=== PATIENT | female | born 1945 | race Asian ===

== ENCOUNTER 2017-05-09 10:33 | Emergency (ER) | payer OTHER ==
[2017-05-09 10:36] VITALS: BP 184/77
== END 2017-05-09 11:53 | disposition home or self-care (01) ==
LOC: ED 10:33
DX: L03.115 Cellulitis of right lower limb (principal); I10 Essential (primary) hypertension; E78.00 Pure hypercholesterolemia, unspecified; W57.XXXA Bitten or stung by nonvenomous insect and other nonvenomous arthropods, initial encounter; Y93.89 Activity, other specified; Y92.89 Other specified places as the place of occurrence of the external cause; Y99.8 Other external cause status

== ENCOUNTER 2017-08-08 11:02 | Inpatient (IN) | payer OTHER ==
[~2017-08-08] VITALS: Ht 160 cm; Wt 55.1 kg
--- NOTE | 2017-08-08 11:24 | NUR ---
PT C/O OF CHEST "BURNING" SINCE APPROX 0800 THIS AM AND HIGH BP, DENIES PAIN. PT STS THAT BURING BEGAN WHILE SITTING IN CHAIR AND REPORTS BURING SENSATIONS IS RADIANTING DOWNWARD TO BLE AND REPORTS WEAKNESS TO BLE. PT IS AAOX4, ANSWERS QUESTIONS APPROPRIATELY, FOLLOWS COMMANDS, MOVES ALL EXTREMITIES WITH EQUAL PETAL SHAPER HAND, NO FACIAL DROOP. DENIES HEADACHE, TINNITUS, OR VISUAL CHANGES. DENIES ABD PAIN, DENIES DYSURIA. PT REPORTS HBP OVER 170 AT HOME, PT IS CURRENTLY AT 152/81 IN ROOM. PT REPORTS THAT ON ADVICE OF PCP, THAT SHE TAKE RX OF CARVEDILIOL 6.5MG AND HCTZ 25MG IN AM AND IF BP REMAINS HIGH AFTER 1 HR TO TAKE HYDRALAZINE 25MG. PT REPORTS FOLLOWING ORDER OF PCP AND BP REMAINING HIGH. PT PLACED ON PSYCHOLOGIST AND PULSE OX, NSR. EKG PERFORMED IN TRIAGE.
--- NOTE | 2017-08-08 11:35 | NUR ---
DR BALDWIN AT BEDSIDE FOR MSE
[2017-08-08] MEDS ORDERED: CARVEDILOL6.25 M1 PO (11:41)
[2017-08-08] MEDS ORDERED: HYDRALAZINE HCL25 MG PO (11:41)
[2017-08-08] MEDS ORDERED: HYDROCHLOROTHIA25 MG PO (11:42)
[2017-08-08] MEDS ORDERED: NITROGLYCERIN0.4 MG SL (11:43)
[2017-08-08] MEDS ORDERED: LIPI20 PO ×2 (11:43→17:09)
[2017-08-08] MEDS ORDERED: ASPIR 8181 MG PO (11:43)
[2017-08-08] MEDS ORDERED: MAGNESIUM OXID400 MG PO (11:43)
--- NOTE | 2017-08-08 11:44 | NUR ---
LAB AT BEDSIDE
[2017-08-08 12:04] LABS: BASOPHIL % 0.6 % (0-2); PLATELET COUNT 200 x10^3mcL (130-400); RED CELL DISTRIBUTION WIDTH 13.8 % (11.5-14.5)
--- NOTE | 2017-08-08 12:13 | NUR ---
PT RESTING IN BED. PT REPORTS CONTINUED BURING SENSATION TO CHEST. NAD NOTED. PT DAUGHTER AT BEDSIDE
[2017-08-08 12:15] LABS: CALCIUM 8.7 mg/dL (8.5-10.1); CARBON DIOXIDE 28.7 mmol/L (21-32); CHLORIDE SERUM 98 mmol/L (98-107); CREATININE SERUM 0.9 mg/dL (0.6-1.0); GLUCOSE SERUM 109 mg/dL (74-106); POTASSIUM SERUM 3.9 mmol/L (3.5-5.1); SODIUM SERUM 134 mmol/L (136-145)
[2017-08-08 12:19] LABS: ALBUMIN 3.8 g/dL (3.4-5.0); ALKALINE PHOSPHATASE 58 U/L (46-116); ALT/SGPT 30 U/L (14-59); AST/SGOT 30 U/L (15-37); BILIRUBIN TOTAL 0.72 mg/dL (0.20-1.00); CHOLESTEROL 177 mg/dL (<200); PHOSPHOROUS 2.8 mg/dL (2.5-4.9); TOTAL PROTEIN, SERUM 7.9 g/dL (6.4-8.2); URIC ACID 4.1 mg/dL (2.6-6.0)
[2017-08-08 12:26] LABS: HDL CHOLESTEROL 67 mg/dL (40-60)
--- NOTE | 2017-08-08 13:11 | NUR ---
DR BALDWIN AT BEDSIDE SPEAKING TO PT REGARDING POC AND TEST RESULTS
--- NOTE | 2017-08-08 13:49 | NUR ---
REPORT CALLED TO CLEMENTINA TORRES RN
--- NOTE | 2017-08-08 14:00 | NUR ---
RECEIVED PT FROM ED VIA [employer] [facility], CAME IN DUE TO CHEST PAIN. AAOX4. DENIES HEADACHE/DIZZINESS. NO SOB NOTED. DENIES CHEST PAIN/PRESSURE AT THIS TIME, NSR ON THE MONITOR. DENIES ABDOMINAL DISCOMFORT. BOWEL SOUNDS ACTIVE. IV SITE PATENT AND INTACT. DAUGHTER AT BEDSIDE. ENDORSED TO PRIMARY NURSE CLEMENTINA FOR CONTINUITY OF CARE
[2017-08-08 14:05] VITALS: BP 153/66
[2017-08-08 14:12] LABS: T3 TOTAL 0.88 ng/mL
[2017-08-08 14:13] VITALS: Ht 160 cm; Wt 55.1 kg
--- NOTE | 2017-08-08 14:20 | NUR ---
RESUMED CARE OF THIS PT, PT IN NO ACUTE DISTRESS. AWAKE AND ALERT. NO C/O CHEST PAIN AT THIS TIME.VS WNL. PT ORIENTED TO ROOM, CALL LIGHT WITHIN REACH AND PT/DAUGHTER INSTRUCTED TO CALL FOR ASSISTANCE NEEDED. IVF AND HEPARIN DRIP INITIATED, INFUSING WELL AND SITE CLEAR. WILL CONTINUE TO MONITOR.
[2017-08-08 14:37] LABS: MAGNESIUM 2.2 mg/dL (1.8-2.4); PHOSPHOROUS 2.9 mg/dL (2.5-4.9)
[2017-08-08 14:47] LABS: FREE T4 0.96 ng/dL (0.76-1.46); FREE THYROXINE INDEX 3.2 ug/dL (1.4-4.5); T4(THYROXINE) 9.2 ug/dL (4.7-13.3)
--- NOTE | 2017-08-08 15:44 | NUR ---
INFLUENZA VACCINE GIVEN PER PROTOCOL. PT TOLERATED WELL. NO ACTIVE REACTION NOTED.
[2017-08-08 16:41] LABS: microscopic required? NO
--- NOTE | 2017-08-08 16:46 | NUR ---
RECEIVED A CALL FROM LAB OF PTT GREATER THAN 150, LAB WAS DROWN RIGHT AFTER INITIAL HEPARIN BOLUS AND HEPARIN DRIP. PER DR. MAYA, DISREGARD THE CURRENT PTT AND RESUME PER PROTOCAL. PT IN NO DISTRESS, NO ACTIVE BLEED NOTED. NO C/O CHEST PAIN AT THIS TIME.
[2017-08-08 17:06] LABS: UA SPECIFIC GRAVITY <=1.005 (1.005-1.035); urine erythrocyte NEGATIVE (NEGATIVE)
[2017-08-08 17:09] VITALS: BP 125/50
[2017-08-08] MEDS ORDERED: HYD25 PO (17:09)
[2017-08-08] MEDS ORDERED: COR6 PO (17:09)
[2017-08-08] MEDS ORDERED: ECO81 PO (17:09)
[2017-08-08] MEDS ORDERED: NIT0.4 SL (17:09)
[2017-08-08] MEDS ORDERED: TYL325 PO (17:10)
[2017-08-08] MEDS ORDERED: HEP5I IV (17:10)
[2017-08-08] MEDS ORDERED: [UNRECOGNIZED DRUG - CODE] IV (17:10)
[2017-08-08] MEDS ORDERED: KETOROLAC TR15 MG/M1 IV (17:10)
[2017-08-08] MEDS ORDERED: AMB5 PO (17:10)
[2017-08-08] MEDS ORDERED: APAP/HYDROCODON1 T13 PO (17:10)
[2017-08-08] MEDS ORDERED: HEP100I IV (17:10)
[2017-08-08] MEDS ORDERED: FLU IM (17:11)
[2017-08-08] MEDS ORDERED: HUMULIN R100 U/1 M1 SC (17:11)
--- NOTE | 2017-08-08 17:49 | NUR ---
RECEIVED CALL FROM [facility], PT WILL BE GOING TO ROOM 255A. CALL REPORT TO . [facility] MAIN LINE IS . [facility] TRANSPORT UPDATED WITH ROOM NUMBER. PHYS THER TIME SET UP FOR 1999. DR MAYA AND PRIMARY NURSE MADE AWARE
--- NOTE | 2017-08-08 18:08 | NUR ---
PT WILL BE TRANSFERED TO [facility] THIS PM, REPORT GIVEN TO MS. BECKETT-NURA
--- NOTE | 2017-08-08 18:31 | NUR ---
PT REMAINS IN NO DISTRESS, AWAKE AND ALERT. FAMILY AT BEDSIDE, NO C/O CHEST PAIN OR DISCOMFORT AT THIS TIME. VSS. IVF AND HEPARIN GTT INFUSING WELL. SITE CLEAR. CALL LIGHT WITHIN REACH. WILL BE ENDORSED TO INCOMING SHIFT.
--- NOTE | 2017-08-08 19:35 | NUR ---
PT IS WAITING FOR THE [facility] TO BE TRANSFERED TO [facility] AT 2030PM. STILL HAS HEPARIN GTT AT 700 UNITS PER HOUR. THERE IS PTT LEVEL ORDERED AT 2000PM AND TROPONIN LEVEL AT THE SAME TIME. ALERT AND ORIENTED. AND AWARE OF THE TRANSFER. FAMILY AT BEDSIDE. HEPARIN 3000 UNIT BOLUS WILL BE GIVEN BEFORE TRANSFER. LUNGS CLEAR ON AUSCULTATIONS BILATERALLY. BOWEL SOUNDS ACTIVE AND PRESENT. WILL MONITOR UNTIL THE TRANSPORT COME.
--- NOTE | 2017-08-08 20:15 | NUR ---
[facility] WAS HOLD BECAUSE THE HEART RATE IS BELOW 60 ABOUT [address] TATE WAS ALSO NOTIFIED ABOUT THE HEART RATE AND SHE ORDERED TO HOLD IT. PT WAS ONLY GIVEN THE LIPITOR AND TO CHECK IT AGAIN WHEN THEY ARRIVED [facility]. EXPLAINED ALSO TO HER DAUGHTER ABOUT WHY IT WAS NOT GIVEN. WAITING FOR THE TRANSPORT.
--- NOTE | 2017-08-08 20:25 | NUR ---
PT REFUSED THE LAB DRAW OF PTT AND TROPONIN LEVEL BECAUSE SHE IS TRNSFERING TO ANOTHER HOSPITAL.
[2017-08-08 20:49] VITALS: BP 100/52
--- NOTE | 2017-08-08 20:55 | NUR ---
DISCONTINUE THE HEPARIN GTT, IV FLUIDS AND TELE.
--- NOTE | 2017-08-08 21:11 | NUR ---
PT WAS DISCHARGED TO [facility], IN STABLE CONDITION. HEPARIN 3000 UNITS BIV BOLUS WAS ADMINISTERED BEFORE SHE LEFT. TOLERATED WELL. DISCHARGED PER BELA IN STABLE CONDITION ACCOMPANIED BY [facility] PERSONNEL. PT IS GOING TO ROOM 255 A IN [facility].FAMILY WAS ALSO MADE AWARE.
--- NOTE | 2017-08-09 07:42 | NUR ---
ECHOCARDIOGRAM NOT DONE PATIENT WAS DISCHARGED.
== END 2017-08-08 21:03 | disposition short-term general hospital (02) | DRG 311 ==
LOC: ED 11:02 → DU 13:17 → EDBEDREQ 13:18 → DU 13:55
PROVIDERS: Emergency Medicine; ADMIT Family Medicine Sports Medicine
DX: I24.9 Acute ischemic heart disease, unspecified (principal); I50.43 Acute on chronic combined systolic (congestive) and diastolic (congestive) heart failure; E87.1 Hypo-osmolality and hyponatremia; D68.69 Other thrombophilia; I11.0 Hypertensive heart disease with heart failure; E11.65 Type 2 diabetes mellitus with hyperglycemia; E78.5 Hyperlipidemia, unspecified; Z68.21 Body mass index [BMI] 21.0-21.9, adult
CPT/HCPCS: 83880; 84439; 90658; J1644; J7030; Q0092